=== PATIENT | male | born 1970 ===

== ENCOUNTER 2023-08-12 10:02 | Outpatient (CLI) | payer OTHER | END 2023-08-12 10:10 | disposition home or self-care (01) | LOC: SONOGRAMA 10:02 | PROVIDERS: ATTEND Anesthesiology Pain Medicine | DX: M25.511 Pain in right shoulder (principal); M25.512 Pain in left shoulder ==

== ENCOUNTER 2024-02-11 09:09 | Outpatient (CLI) | payer OTHER | END 2024-02-11 09:12 | disposition home or self-care (01) | LOC: SONOGRAMA 09:09 | DX: M54.50 Low back pain, unspecified (principal); M25.559 Pain in unspecified hip; M62.830 Muscle spasm of back; M79.10 Myalgia, unspecified site ==